=== PATIENT | male | born 1950 | race Asian ===

== ENCOUNTER 2017-04-23 01:33 | Emergency (ER) | payer BC ==
[2017-04-23 01:44] VITALS: BP 165/96; PULSE 75; TEMP 97.5; BMI 24.1
[2017-04-23 04:38] LABS: BASOPHIL 0.6 % (0-2.0); EOSINOPHIL 0.5 % (0-4.5); MCH 30.1 pg (25.7-33.7); MCHC 33.3 g/dl (32.0-35.9); MEAN CELL VOLUME 90.3 fl (80-96); MEAN PLT VOLUME 7.4 fl (7.5-11.1); NEUTROPHILS 76.1 % (42.8-82.8); PLATELET COUNT 193 K/MM3 (134-434); RDW 12.7 % (11.9-15.9)
[2017-04-23] MEDS ORDERED: KETOROLAC TROMETHAMINE 60 MG/2 ML VIAL IM ONE (05:16)
[2017-04-23 05:19] LABS: ALBUMIN 4.4 g/dl (3.4-5.0); ANION GAP 12 (8-16); BILIRUBIN,TOTAL 0.8 mg/dL (0.2-1.0); CALCIUM 9.5 mg/dL (8.5-10.1); CO2 26 mmol/L (21-32); CREATININE 1.3 mg/dL (0.7-1.3); GLUCOSE,RANDOM 168 mg/dL (74-106); SGOT/AST 18 U/L (15-37); SGPT/ALT 36 U/L (12-78); TOT PROT 7.8 g/dl (6.4-8.2)
[2017-04-23 05:20] LABS: ALK PHOS 67 U/L (45-117)
[2017-04-23 05:22] LABS: TROPONIN I < 0.02 ng/ml (0.00-0.05)
[2017-04-23] MEDS ORDERED: KETOROLAC TROMETHAMINE 60 MG/2 ML VIAL ONE (05:22)
--- NOTE | 2017-04-23 06:00 | PDOC ---
History of Present Illness - General Chief Complaint: Pain Stated Complaint: LFT ARM NUMBNESS Time Seen by Provider: 04/23/17 03:35 - History of Present Illness Initial Comments: 04/23/17 05:52 CHIEF COMPLAINT: HISTORY OF PRESENT ILLNESS: 67 yo M with hx of HTN and NIDDM presents to ED with pain to L shoulder and back. Patient states that the pain began after doing pushups recently, and worsened tonight so he came in . He states that he has had a history of "problems with this shoulder" and last year had the same type of pain after shoveling. He reports that five years ago he had the same pain and had an MRI and was treated by a chiropractor. No recent travel or sick contacts. PAST MEDICAL HISTORY: Denies past medical history FAMILY HISTORY: Denies SOCIAL HISTORY: Denies tobacco, alcohol, illicit drug use. SURGICAL HISTORY: Denies ALLERGIES: contrast REVIEW OF SYSTEMS General/Constitutional: Denies fever or chills. Denies weakness, weight change. HEENT: Denies change in vision. Denies ear pain or discharge. Denies sore throat. Cardiovascular: Denies chest pain or shortness of breath. Respiratory: Denies cough, wheezing, or hemoptysis. Gastrointestinal: Denies nausea, vomiting, diarrhea or constipation. Denies rectal bleeding. Genitourinary: Denies dysuria, frequency, or change in urination. Musculoskeletal: Pain and tingling to left arm and back. Denies joint or muscle swelling or pain. Denies neck or back pain. Skin and breasts: Denies rash or easy bruising. PHYSICAL EXAM General Appearance: Well-appearing, appropriately dressed. No apparent distress. HEENT: EOMI, PERRLA, normal ENT inspection, normal voice, TMs normal, pharynx normal. No conjunctival pallor. No photophobia, scleral icterus. Neck: Supple. Trachea midline. No tenderness, rigidity, carotid bruit, stridor , lymphadenopathy, or thyromegaly. Respiratory/Chest: Lungs CTAB. No shortness of breath, chest tenderness, respiratory distress, accessory muscle use. No crackles, rales, rhonchi, stridor , wheezing, dullness Cardiovascular: RRR. S1, S2. No JVD, murmur, bradycardia, tachycardia. Vascular Pulses: Dorsalis-Pedis (R): 2+, Dorsalis-Pedis (L): 2+ Gastrointestinal/Abdominal: Normal bowel sounds. Abdomen soft, non-distended. No tenderness or rebound tenderness. No organomegaly, pulsatile mass, guarding , hernia, hepatomegaly, splenomegaly. Lymphatic: No adenopathy, tenderness. Musculoskeletal/Extremities: No edema, erythema, swelling to L arm. Reproducible discomfort to left trapezius. Full ROM to L shoulder and arm. Normal inspection. FROM of all extremities, normal capillary refill. Pelvis Stable. No CVA tenderness. No tenderness to extremities, pedal edema, swelling , erythema or deformity. Integumentary: Appropriate color, dry, warm. 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 Fully oriented, alert. Appropriate mood/affect. Motor strength 5/5. No appreciable EOM palsy, facial droop or sensory deficit. Past History - Past Medical History Allergies/Adverse Reactions: Allergies Allergy/AdvReac Type Severity Reaction Status Date / Time Iodinated Contrast Media - Allergy ITCHY Verified 04/23/17 01:44 Oral and Home Medications: Ambulatory Orders Aspirin Coated [Ecotrin -] 81 mg PO DAILY 12/11/14 Linagliptin/Metformin HCl [Jentadueto 2.5 mg-1000 mg Tab] 1 each PO DAILY Nebivolol HCl [Bystolic] 5 mg PO DAILY 12/11/14 Olmesartan/Hydrochlorothiazide [Benicar Hct 40-25 mg Tablet] 1 each PO DAILY Diazepam [Valium] 5 mg PO HS PRN #5 tablet MDD 1 04/23/17 Anemia: Yes Diabetes: Yes HTN: Yes Hypercholesterolemia: Yes - Psycho/Social/Smoking Cessation Hx Suicidal Ideation: No Smoking History: Never smoked Have you smoked in the past 12 months: No If you are a former smoker, when did you quit?: 1988 Information on smoking cessation initiated: No Hx Alcohol Use: Yes (RARELY) Drug/Substance Use Hx: No Substance Use Type: Alcohol Hx Substance Use Treatment: No *Physical Exam - Vital Signs Last Vital Signs Temp Pulse Resp BP Pulse Ox 97.5 F L 75 18 165/96 99 04/23/17 01:42 04/23/17 01:42 04/23/17 01:42 04/23/17 01:42 04/23/17 01:42 ED Treatment Course - LABORATORY CBC & Chemistry Diagram: 04/23/17 04:30 04/23/17 04:30 - ADDITIONAL ORDERS Additional order review: Laboratory Results 04/23/17 04/23/17 04/23/17 04:30 04:30 04:30 Sodium 142 Potassium 4.2 Chloride 104 Carbon Dioxide 26 Anion Gap 12 BUN 28 H D Creatinine 1.3 Creat Clearance w eGFR 54.90 Random Glucose 168 H Calcium 9.5 Magnesium 1.7 L Total Bilirubin 0.8 D AST 18 ALT 36 D Alkaline Phosphatase 67 Creatine Kinase 123 Troponin I < 0.02 Total Protein 7.8 D Albumin 4.4 D 04/23/17 04:30 RBC 4.85 D MCV 90.3 D MCHC 33.3 RDW 12.7 D MPV 7.4 L D Neutrophils % 76.1 Lymphocytes % 15.8 Monocytes % 7.0 Eosinophils % 0.5 D Basophils % 0.6 - Medications Given in the ED: ED Medications Discontinued Medications Generic Name Dose Route Start Last Admin Trade Name Freq PRN Reason Stop Dose Admin Ketorolac Tromethamine 60 mg 04/23/17 05:16 04/23/17 05:28 Toradol Injection - IM 04/23/17 05:17 60 mg ONCE ONE Administration Medical Decision Making - Medical Decision Making 04/23/17 05:59 67 yo M with hx of HTN and NIDDM presents to ED with pain to L shoulder and back. -CBC, CMP, card proflie -EKG -60 mg Toradol Advised patient to take medication as prescribed and f/u with orthopedics for possible repeat MRI and/or physical therapy. Advised patient of signs and symptoms for return to ER; patient verbalized understanding and agrees to plan . *DC/Admit/Observation/Transfer Diagnosis at time of Disposition: Left arm pain - Discharge Dispostion Disposition: HOME Condition at time of disposition: Stable Admit: No - Prescriptions Prescriptions: Diazepam [Valium] 5 mg PO HS PRN #5 tablet MDD 1 PRN Reason: Pain - Referrals Referrals: Everardo Ruboi MD [Primary Care Provider] - - Patient Instructions Printed Discharge Instructions: DI for Arm Pain Additional Instructions: Please take medications as prescribed. As discussed, do not drive while taking this medication. Follow up with orthopedics within the next week for further evaluation of your arm pain. If you experience any palpitations, shortness of breath, chest pain, swelling or redness of the arm, or any new or worsening symptoms, please return to the ER.
--- NOTE | 2017-04-24 10:41 | EKG ---
Test Reason : Blood Pressure : / mmHG Vent. Rate : 071 BPM Atrial Rate : 071 BPM P-R Int : 146 ms QRS Dur : 092 ms QT Int : 400 ms P-R-T Axes : 000 010 -15 degrees QTc Int : 434 ms POOR DATA QUALITY, INTERPRETATION MAY BE ADVERSELY AFFECTED NORMAL SINUS RHYTHM NONSPECIFIC T WAVE ABNORMALITY ABNORMAL ECG WHEN COMPARED WITH ECG OF 14-FEB-2008 05:48, NONSPECIFIC T WAVE ABNORMALITY HAS REPLACED INVERTED T WAVES IN INFERIOR LEADS T WAVE INVERSION NOW EVIDENT IN ANTERIOR LEADS Confirmed by AYDIN MENON MD ([id number]) on 04/24/2017 10:41:03 AM Referred By: Confirmed By:AYDIN MENON MD
== END 2017-04-23 06:18 | disposition home or self-care (01) ==
LOC: JER 01:33
PROC: 3E0233Z Introduction of Anti-inflammatory into Muscle, Percutaneous Approach (ICD-10-PCS; principal; 2017-04-23)
DX: M25.512 Pain in left shoulder (principal); M79.602 Pain in left arm; X50.0XXA Overexertion from strenuous movement or load, initial encounter; X50.3XXA Overexertion from repetitive movements, initial encounter; Y93.B2 Activity, push-ups, pull-ups, sit-ups; Y92.89 Other specified places as the place of occurrence of the external cause; I10 Essential (primary) hypertension; E11.9 Type 2 diabetes mellitus without complications; Z79.84 Long term (current) use of oral hypoglycemic drugs; E78.00 Pure hypercholesterolemia, unspecified
CPT/HCPCS: 36415; 80053; 82550; 83735; 84484; 85025; 93005; 93010; 99281-25

== ENCOUNTER 2023-08-22 21:18 | Inpatient (IN) | payer BC, OTHER ==
[2023-08-22 21:27] VITALS: BMI 23.4
[2023-08-22 22:41] LABS: BASO % 0.8 % (0-2.0); EOS % 1.6 % (0-4.5); HEMOGLOBIN 8.7 GM/dL (11.7-16.9); LYMPH % 15.3 % (8-40); MCH 30.1 pg (25.7-33.7); MCHC 33.6 g/dl (32.0-35.9); MEAN CELL VOLUME 89.7 fl (80-96); MEAN PLT VOLUME 7.5 fl (7.5-11.1); MONO % 8.9 % (3.8-10.2); NEUT % 73.4 % (42.8-82.8); PLATELET COUNT 217 10^3/uL (134-434); RDW 12.6 % (11.9-15.9); WHITE BLOOD COUNT 7.8 K/mm3 (4.0-10.0)
[2023-08-22 22:54] LABS: INR 0.97 (0.83-1.09); PROTHROMBIN TIME (PATIENT) 11.3 SEC (9.7-13.0)
[2023-08-22 22:56] LABS: ACTIVATED PTT 36.7 SECONDS (25.2-36.5)
[2023-08-22 23:07] LABS: CALCIUM 8.6 mg/dL (8.5-10.1)
[2023-08-22 23:08] LABS: BLOOD UREA NITROGEN 93.8 mg/dL (7-18); MAGNESIUM 2.1 mg/dL (1.8-2.4)
[2023-08-22 23:11] LABS: CREATININE 7.3 mg/dL (0.55-1.3); PHOSPHOROUS 5.6 mg/dL (2.5-4.9)
[2023-08-22 23:13] LABS: BILIRUBIN,TOTAL 0.3 mg/dL (0.2-1); TOT PROT 7.4 g/dl (6.4-8.2)
[2023-08-22] MEDS ORDERED: FUROSEMIDE 40 MG/4 ML INJECTABLE VIAL IVPUSH ONE (23:40)
[2023-08-22] MEDS ORDERED: NITROGLYCERIN 2% OINTMENT - 1GM PACKET TD ONE ×2 (23:40→23:45)
[2023-08-22] MEDS ORDERED: FUROSEMIDE 40 MG/4 ML INJECTABLE VIAL ONE (23:45)
[2023-08-22] MEDS ORDERED: DEXAMETHASONE SOD PHOSPHATE 10 MG/1 ML VIAL ONE (23:45)
[2023-08-22] MEDS ORDERED: DEXAMETHASONE SOD PHOSPHATE 10 MG/1 ML VIAL IVPUSH SCH (23:54)
[2023-08-22] MEDS ORDERED: DEXAMETHASONE SOD PHOSPHATE 10 MG/1 ML VIAL IVPUSH ONE (23:55)
[2023-08-23] MEDS ORDERED: HEPARIN NA (PORCINE) 5,000 UNITS/ML 1ML VIAL ONE ×3 (06:46→22:56)
[2023-08-23] MEDS: HEPARIN NA (PORCINE) 5,000 UNITS/ML 1ML VIAL SQ SCH ×3 (06:47→23:37)
[2023-08-23 07:53] LABS: HEMATOCRIT 26.4 % (35.4-49); HEMOGLOBIN 8.7 GM/dL (11.7-16.9); MCH 29.9 pg (25.7-33.7); MCHC 32.9 g/dl (32.0-35.9); MEAN CELL VOLUME 90.9 fl (80-96); MEAN PLT VOLUME 7.4 fl (7.5-11.1); PLATELET COUNT 221 10^3/uL (134-434); RDW 12.5 % (11.9-15.9); RETICULOCYTES 1.57 % (0.5-1.5); WHITE BLOOD COUNT 6.5 K/mm3 (4.0-10.0)
[2023-08-23 07:57] LABS: CHLORIDE 107 mmol/L (98-107); POTASSIUM 4.5 mmol/L (3.5-5.1); SODIUM 136 mmol/L (136-145)
[2023-08-23 08:04] LABS: CALCIUM 8.9 mg/dL (8.5-10.1)
[2023-08-23 08:05] LABS: ALBUMIN 3.8 g/dl (3.4-5.0); BLOOD UREA NITROGEN 88.2 mg/dL (7-18); GLUCOSE,RANDOM 212 mg/dL (74-106)
[2023-08-23 08:07] LABS: ANION GAP 12 mmol/L (4-13); CO2 16 mmol/L (21-32); MAGNESIUM 1.8 mg/dL (1.8-2.4)
[2023-08-23 08:08] LABS: CHOLESTEROL 101 mg/dL (50-200); PHOSPHOROUS 5.6 mg/dL (2.5-4.9); SGPT/ALT 33 U/L (13-61)
[2023-08-23 08:09] LABS: BILIRUBIN,TOTAL 0.6 mg/dL (0.2-1); LDL CHOLESTEROL (ONLY SJRH) 46 mg/dL (5-100); SGOT/AST 17 U/L (15-37)
[2023-08-23 08:10] LABS: ALK PHOS 78 U/L (45-117); TOTAL IRON BINDING CAPACITY 300 ug/dL (250-450)
[2023-08-23 08:11] LABS: HDL CHOLESTEROL 41 mg/dL (40-60); IRON SERUM 32 ug/dL (50-175); TOT PROT 7.4 g/dl (6.4-8.2)
[2023-08-23] MEDS: INSULIN SLIDING SCALE (NOVOLOG) 1 VIAL SQ SCH ×3 (08:20→17:07)
[2023-08-23 08:26] LABS: CREATININE 7.6 mg/dL (0.55-1.3)
[2023-08-23 08:41] LABS: EPI CELLS 2 /uL (0-25.1); HYALINE CASTS 0 /uL (0-3.1); PH,URINE 5.5 (5.0-8.0); URINE APPEARANCE CLEAR; URINE BACTERIA 2 /uL (0-1359); URINE BILIRUBIN NEGATIVE (NEGATIVE); URINE COLOR YELLOW; URINE GLUCOSE (UA) 1+ (NEGATIVE); URINE KETONE NEGATIVE (NEGATIVE); URINE LEUK ESTERASE NEGATIVE (NEGATIVE); URINE NITRITE NEGATIVE (NEGATIVE); URINE PROTEIN 3+ (NEGATIVE); URINE RBC 5 /uL (0-23.9); URINE UROBILINOGEN 0.2 mg/dL (0.2-1.0); URINE WBC 4 /uL (0-25.8)
[2023-08-23] MEDS ORDERED: IRON SUCROSE INJECTION 200 MG in SODIUM CHLORIDE 90 ML IVPB ONE (09:00)
[2023-08-23] MEDS ORDERED: FUROSEMIDE 40 MG/4 ML INJECTABLE VIAL IVPUSH SCH ×2 (09:15→10:00)
[2023-08-23] MEDS: CALCITRIOL 0.25 MCG CAPSULE (FP) PO SCH (09:53)
[2023-08-23] MEDS ORDERED: LEVOTHYROXINE NA 75 MCG TABLET (FP) ONE (09:59)
[2023-08-23] MEDS ORDERED: FUROSEMIDE 40 MG/4 ML INJECTABLE VIAL ONE (10:00)
[2023-08-23] MEDS ORDERED: DEXAMETHASONE SOD PHOSPHATE 10 MG/1 ML VIAL IVPUSH SCH (10:00)
[2023-08-23] MEDS ORDERED: LEVOTHYROXINE NA 75 MCG TABLET (FP) PO SCH ×2 (10:00→10:04)
[2023-08-23] MEDS: SEVELAMER CARBONATE 800 MG TAB (FP) PO SCH ×2 (11:21→17:09)
[2023-08-23] MEDS ORDERED: SEVELAMER CARBONATE 800 MG TAB (FP) ONE ×2 (11:21→17:09)
[2023-08-23] MEDS: SODIUM BICARBONATE 650 MG TABLET PO SCH ×2 (15:09→23:37)
[2023-08-23] MEDS: amLODIPine BESYLATE 10 MG TABLET (FP) PO SCH (15:48)
[2023-08-23] MEDS ORDERED: amLODIPine BESYLATE 10 MG TABLET (FP) ONE (15:48)
[2023-08-23] MEDS ORDERED: ERGOCALCIFEROL (VIT D2) 50,000 UNIT (1.25 MG) CAPSULE PO SCH (17:00)
[2023-08-23] MEDS ORDERED: ATORVASTATIN CA 40 MG TABLET (FP) PO SCH (22:00)
[2023-08-23] MEDS ORDERED: hydrALAZINE HCL 50 MG TABLET (FP) ONE (22:56)
[2023-08-23] MEDS ORDERED: ATORVASTATIN CA 40 MG TABLET (FP) ONE (22:56)
[2023-08-23] MEDS: hydrALAZINE HCL 50 MG TABLET (FP) PO SCH (23:37)
[2023-08-23] MEDS ORDERED: DEXAMETHASONE SOD PHOSPHATE 10 MG/1 ML VIAL IVPUSH ONE (23:55)
[2023-08-24] MEDS ORDERED: hydrALAZINE HCL 50 MG TABLET (FP) ONE (06:15)
[2023-08-24] MEDS ORDERED: HEPARIN NA (PORCINE) 5,000 UNITS/ML 1ML VIAL ONE (06:15)
[2023-08-24] MEDS: HEPARIN NA (PORCINE) 5,000 UNITS/ML 1ML VIAL SQ SCH (06:30)
[2023-08-24] MEDS: hydrALAZINE HCL 50 MG TABLET (FP) PO SCH (06:30)
[2023-08-24 08:18] LABS: HEMATOCRIT 22.4 % (35.4-49); HEMOGLOBIN 7.7 GM/dL (11.7-16.9); MCH 30.8 pg (25.7-33.7); MCHC 34.2 g/dl (32.0-35.9); MEAN CELL VOLUME 89.9 fl (80-96); MEAN PLT VOLUME 7.7 fl (7.5-11.1); PLATELET COUNT 198 10^3/uL (134-434); RBC 2.49 M/mm3 (4.00-5.60); RDW 12.7 % (11.9-15.9); WHITE BLOOD COUNT 7.8 K/mm3 (4.0-10.0)
[2023-08-24 08:27] VITALS: RESP 20
[2023-08-24] MEDS: LOSARTAN POTASSIUM 50 MG TABLET PO SCH ×2 (08:33→09:08)
[2023-08-24] MEDS: INSULIN SLIDING SCALE (NOVOLOG) 1 VIAL SQ SCH (08:33)
[2023-08-24] MEDS: SEVELAMER CARBONATE 800 MG TAB (FP) PO SCH (08:33)
[2023-08-24 08:34] LABS: CHLORIDE 107 mmol/L (98-107); POTASSIUM 4.1 mmol/L (3.5-5.1); SODIUM 139 mmol/L (136-145)
[2023-08-24] MEDS: amLODIPine BESYLATE 10 MG TABLET (FP) PO SCH ×2 (08:34→09:08)
[2023-08-24] MEDS: CALCITRIOL 0.25 MCG CAPSULE (FP) PO SCH ×2 (08:35→09:08)
[2023-08-24] MEDS: SODIUM BICARBONATE 650 MG TABLET PO SCH ×2 (08:35→09:08)
[2023-08-24 08:45] LABS: CALCIUM 8.5 mg/dL (8.5-10.1)
[2023-08-24 08:46] LABS: ANION GAP 14 mmol/L (4-13); CO2 18 mmol/L (21-32)
[2023-08-24 08:50] LABS: PHOSPHOROUS 5.9 mg/dL (2.5-4.9)
[2023-08-24 08:51] LABS: GLUCOSE,RANDOM 105 mg/dL (74-106)
[2023-08-24 08:52] LABS: BLOOD UREA NITROGEN 104.4 mg/dL (7-18); CREATININE 7.9 mg/dL (0.55-1.3)
[2023-08-24] MEDS ORDERED: FUROSEMIDE 40 MG/4 ML INJECTABLE VIAL IVPUSH ONE (09:00)
[2023-08-24] MEDS ORDERED: FUROSEMIDE 40 MG/4 ML INJECTABLE VIAL IVPUSH SCH ×2 (10:00)
[2023-08-24 11:17] VITALS: BP 133/57; PULSE 73; TEMP 97.7
[2023-08-25] MEDS ORDERED: FUROSEMIDE 40 MG TABLET (FP) PO SCH (10:00)
== END 2023-08-24 11:29 | disposition home or self-care (01) | DRG 683 ==
LOC: JER 21:18 → JERBED 08-23 00:07
PROVIDERS: ADMIT Internal Medicine; ATTEND Internal Medicine
DX: I12.0 Hypertensive chronic kidney disease with stage 5 chronic kidney disease or end stage renal disease (principal); N18.5 Chronic kidney disease, stage 5; E78.5 Hyperlipidemia, unspecified; E03.9 Hypothyroidism, unspecified; D63.1 Anemia in chronic kidney disease; I16.0 Hypertensive urgency
CPT/HCPCS: 36415; 71046-TC-FY; 80048; 80053; 80061; 81003; 82550; 82728; 82962; 83540; 83550; 83735; 83880; 84100; 84443; 84466; 84484; 85025; 85027; 85045; 85610; 85730; 86850; 86900; 86901; 93005; 93010; 93306-TC; 94660; 99291; 99292; J1100; J1644; J1756